=== PATIENT | female | born 1935 | race Caucasian/White ===

== ENCOUNTER → 2018-12-07 | Outpatient (CLI) | payer MEDICARE, OTHER ==
[~2018-12-07] MED LIST: BUPIVACAINE MPF 0.5% 30 ML VIAL. ONE; IOHEXOL 300 MG/ML 50 ML VIAL. ONE; LIDOCAINE 1% PF 30 ML VIAL. ONE; methylPREDNISolone ACETATE 80 MG/ML VIAL. ONE
== END | disposition home or self-care (01) ==
LOC: SURG 09:32
PROVIDERS: ATTEND Anesthesiology Pain Medicine
DX: M17.11 Unilateral primary osteoarthritis, right knee (principal); Z88.2 Allergy status to sulfonamides; K21.9 Gastro-esophageal reflux disease without esophagitis; M19.90 Unspecified osteoarthritis, unspecified site; Z79.899 Other long term (current) drug therapy; Z72.89 Other problems related to lifestyle; M54.16 Radiculopathy, lumbar region; Z86.718 Personal history of other venous thrombosis and embolism
CPT/HCPCS: 20610; 77002; J1040; J2001; J3490; 20611; Q9967

== ENCOUNTER → 2019-08-17 | Outpatient (CLI) | payer MEDICARE, OTHER ==
[2019-08-17] VITALS (7 sets, daily range): BP systolic 116–149; BP diastolic 65–84
[2019-08-17 17:22] LABS: HEMATOCRIT 22.5 % (36.0-47.0); HEMOGLOBIN 7.3 g/dL (12.0-15.5)
[2019-08-17 23:23] LABS: HEMOGLOBIN 8.2 g/dL (12.0-15.5)
== END | disposition home or self-care (01) ==
LOC: OPINF 16:52
PROVIDERS: ATTEND Internal Medicine
DX: D64.9 Anemia, unspecified (principal); K21.9 Gastro-esophageal reflux disease without esophagitis; M17.11 Unilateral primary osteoarthritis, right knee; Z79.899 Other long term (current) drug therapy
CPT/HCPCS: 36415; 85014; 85018; 86850; 86900; 86901; 86920; P9016

== ENCOUNTER 2021-08-05 13:47 | Emergency (ER) | payer MEDICARE, OTHER ==
[~2021-08-05] VITALS: Ht 149.9 cm; Wt 47.0 kg
[2021-08-05 14:07] VITALS: BP 163/102
[2021-08-05 14:57] LABS: BASO % 1 % (0-3); EOS % 1 % (0-3); HEMATOCRIT 39.6 % (36.0-47.0); HEMOGLOBIN 12.9 g/dL (12.0-15.5); LYMPH # 0.7 x10^3/uL (1.0-4.8); LYMPH % 16 % (24-48); MEAN CORPUSCULAR HEMOGLOBIN 31 pg (25-35); MEAN CORPUSCULAR HGB CONC 33 g/dL (31-37); MEAN CORPUSCULAR VOLUME 95 fL (79-100); MONO # 0.3 x10^3/uL (0.0-1.1); MONO % 7 % (0-9); NEUT # 3.6 x10^3uL (1.8-7.7); NEUT % 77 % (31-73); PLATELET COUNT 88 x10^3/uL (140-400); RED CELL DISTRIBUTION WIDTH 14.6 % (11.5-14.5); WHITE BLOOD COUNT 4.7 x10^3/uL (4.0-11.0)
--- NOTE | 2021-08-05 15:01 | PHYS DOC ---
Past History Past Surgical History: Cholecystectomy, Hysterectomy, Knee Replacement, Other Additional Past Surgical Histo: back, shoulders (CLEM HUTCHINS DO) Alcohol Use: None (CLEM HUTCHINS DO) Adult General Chief Complaint Chief Complaint: NEURO SYMPTOMS/DEFICITS HPI HPI Patient is an 86-year-old female who presents with resolved behavioral and speech changes that were present on Wednesday (08/02/2021) evening. Patient's is at bedside and helps provide history, as patient has no recollection of the event. Patient's reports that the patient went "berserk." He states that she was restless and slightly aggressive, for example he tried to put her bed robe on her, and she immediately took it off. He states that when they went to bed, she was moving a lot and tried to get on his side of the bed, and then tried to sleep on the couch. He did make sure that she stayed in bed so that he could keep a closer eye on her. Patient states he called his em ghter the next morning because he was concerned. Patient states that when she woke up on Wednesday, she was very tired and "disoriented." denies noticing any physical deficits or physical trauma. He states that for the most part, what she said made sense, but some of what she was saying was unintelligible and slurred at times. Patient denies pain outside of her normal chronic arthritic pain. She denies change in vision, blind spots, chest pain, palpitations, cough, shortness of breath, abdominal pain, N/V/D, dysuria and hematuria. Patient and her have no other complaints at this time. (DARIUSZ MONTES) Review of Systems Review of Systems ROS negative except as mentioned in HPI. (DARIUSZ MONTES) Current Medications Current Medications Current Medications Medications (Trade) Dose Ordered Sig/Renetta Start Time Stop Time Status Last Admin Dose Admin Lorazepam (Ativan Inj) 0.5 mg 1X ONCE 08/05/21 15:00 08/05/21 15:01 (CLEM HUTCHINS DO) Allergies Allergies Allergies Coded Allergies Type Severity Reaction Last Updated Verified Sulfa (Sulfonamide Antibiotics) Allergy Unknown 08/05/21 Yes adhesive Allergy Unknown 08/05/21 Yes mirtazapine Allergy Unknown 08/05/21 Yes (CLEM HUTCHINS DO) Physical Exam Physical Exam Constitutional: Patient is resting comfortably in bed. She is thin, but appears stated age. Nontoxic appearance. Head and neck: Normocephalic atraumatic, without tenderness. Bilateral external ears without evidence of trauma. Oropharynx moist and without evidence of trauma. Nose within normal limits. Range of motion intact, no tenderness, no tracheal deviation, no goiter. Eyes: PERRLA, EOMI, conjunctiva normal, no discharge bilaterally. Cardiovascular: RRR, no murmurs rubs or gallops. Pulmonary: Lungs are clear to auscultation in all lung chamorro. No wheezing, rales or rhonchi. Abdomen: Normoactive bowel sounds, no tenderness, no pulsatile masses. Skin: Skin is warm and dry without erythema or rashes. Patient does have some bilateral upper extremity ecchymosis which is consistent for age. Back: No bony tenderness in cervical, thoracic or lumbar spine. No paraspinal tenderness. No CVA tenderness. Extremities: Range of motion intact as expected for age and history of arthritis. Extremities are nonedematous and without obvious deformity. Neurologic: Alert and oriented x3, motor and sensory function intact. Strength 4 out of 5 in extremities x4, consistent for age. No focal deficits. Psychologic: Patient is mildly anxious, but her affect, mood and judgment are appropriate. (DARIUSZ MONTES) Current Patient Data Vital Signs Vital Signs Date Time Temp Pulse Resp B/P (MAP) Pulse Ox O2 Delivery O2 Flow Rate FiO2 08/05/21 14:07 85 16 163/102 96 Room Air (CLEM HUTCHINS DO) Vital Signs VS - Last 72 Hours, by Label Date Time Temp Pulse Resp B/P (MAP) Pulse Ox O2 Delivery O2 Flow Rate FiO2 08/05/21 14:07 85 16 163/102 96 Room Air Lab Results Laboratory Tests Test 08/05/21 14:40 08/05/21 17:12 White Blood Count 4.7 x10^3/uL (4.0-11.0) Red Blood Count 4.20 x10^6/uL (3.50-5.40) Hemoglobin 12.9 g/dL (12.0-15.5) Hematocrit 39.6 % (36.0-47.0) Mean Corpuscular Volume 95 fL (79-100) Mean Corpuscular Hemoglobin 31 pg (25-35) Mean Corpuscular Hemoglobin Concent 33 g/dL (31-37) Red Cell Distribution Width 14.6 % (11.5-14.5) Platelet Count 88 x10^3/uL (140-400) Neutrophils (%) (Auto) 77 % (31-73) Lymphocytes (%) (Auto) 16 % (24-48) Monocytes (%) (Auto) 7 % (0-9) Eosinophils (%) (Auto) 1 % (0-3) Basophils (%) (Auto) 1 % (0-3) Neutrophils # (Auto) 3.6 x10^3uL (1.8-7.7) Lymphocytes # (Auto) 0.7 x10^3/uL (1.0-4.8) Monocytes # (Auto) 0.3 x10^3/uL (0.0-1.1) Eosinophils # (Auto) 0.0 x10^3/uL (0.0-0.7) Basophils # (Auto) 0.0 x10^3/uL (0.0-0.2) Sodium Level 144 mmol/L (136-145) Potassium Level 4.3 mmol/L (3.5-5.1) Chloride Level 107 mmol/L (98-107) Carbon Dioxide Level 30 mmol/L (21-32) Anion Gap 7 (6-14) Blood Urea Nitrogen 21 mg/dL (7-20) Creatinine 1.2 mg/dL (0.6-1.0) Estimated GFR (Cockcroft-Gault) 42.7 BUN/Creatinine Ratio 18 (6-20) Glucose Level 115 mg/dL (70-99) Calcium Level 9.2 mg/dL (8.5-10.1) Total Bilirubin 0.3 mg/dL (0.2-1.0) Aspartate Amino Transf (AST/SGOT) 27 U/L (15-37) Alanine Aminotransferase (ALT/SGPT) 24 U/L (14-59) Alkaline Phosphatase 137 U/L (46-116) Troponin I Quantitative < 0.017 ng/mL (0-0.055) Total Protein 7.0 g/dL (6.4-8.2) Albumin 3.8 g/dL (3.4-5.0) Albumin/Globulin Ratio 1.2 (1.0-1.7) Urine Collection Type Unknown Urine Color Yellow Urine Clarity Clear Urine pH 7.0 Urine Specific [place] 1.020 Urine Protein Neg (NEG-TRACE) Urine Glucose (UA) Neg mg/dL (NEG) Urine Ketones (Stick) Neg mg/dL (NEG) Urine Blood Trace (NEG) Urine Nitrite Neg (NEG) Urine Bilirubin Neg (NEG) Urine Urobilinogen Dipstick 0.2 mg/dL (0.2 mg/dL) Urine Leukocyte Esterase Neg (NEG) Urine RBC Occ /HPF (0-2) Urine WBC 0 /HPF (0-4) Urine Squamous Epithelial Cells Few /LPF Urine Bacteria 0 /HPF (0-FEW) (DARIUSZ MONTES) EKG EKG EKG ordered and interpreted by myself at 1454 hrs. as sinus rhythm at 64 bpm, prolonged [place] 238 otherwise unremarkable intervals, left axis deviation, no STEMI (CLEM HUTCHINS DO) Radiology/Procedures Radiology/Procedures [] (CLEM HUTCHINS DO) Radiology/Procedures CT HEAD WITHOUT CONTRAST 08/05/2021 3:00 PM Indication: Reason: CONFUSION, MEMORY LOSS STARTED 3 DAYS AGO WITHOUT TRAUMA : Comparison: None Procedure: Multidetector CT imaging of the head was performed without the administration of contrast. Findings: Age-appropriate senescent atrophic changes noted. Inferior most right temporal lobe and cerebellum not included on the exam. Visualized intracranial structures demonstrate no evidence of acute intracranial hemorrhage. There is no evidence of acute territorial infarction. Please note that CT is limited for evaluation of acute ischemia. No mass effect or midline shift is identified . The ventricles and basilar cisterns have an appropriate appearance. No abnormal extra-axial fluid collections are seen. No acute osseous changes are identified. Impression: Mildly limited study without evidence of acute intracranial abnormality CT DOSING PQRS STATEMENT: One or more of the following individualized dose reduction techniques were utilized for this examination: 1. Automated exposure control 2. Adjustment of the mA and/or kV according to patient size 3. Use of iterative reconstruction technique Electronically signed by: José Miguel Vega MD (08/05/2021 3:51 PM) [id number] Repeat head CT was ordered, due to incomplete initial scan. 16:05 Addendum #1 Addendum: Repeat imaging was performed including the anterior right temporal lobe and cerebellum which could be unremarkable. No acute intracranial abnormality was identified. Electronically signed by: José Miguel Vega MD (08/05/2021 4:32 PM) [id number] (DARIUSZ MONTES) Heart Score C/O Chest Pain: No HEART Score for Chest Pain: HEART Score for Chest Pain Response (Comments) Value History Slighlty/Non-Suspicious 0 ECG Normal 0 Age > 65 2 Risk Factors >3 Risk Factors or Hx CAD 2 Troponin < Normal Limit 0 Total 4 Risk Factors: Risk Factors: DM, Current or recent (<one month) smoker, HTN, HLP, family history of CAD, obesity. Risk Scores: Risk Factors: DM, Current or recent (<one month) smoker, HTN, HLP, family history of CAD, obesity. (CLEM HUTCHINS DO) C/O Chest Pain: No (DARIUSZ MONTES) Course & Med Decision Making Course & Med Decision Making I was the Attending physician on the above date of service of this patient. This patient was evaluated, examined, treated, and dispositioned from the emergency department by the mid-level practitioner. Outpatient neurology follow-up advised Electronically signed, Clem Hutchins DO (CLEM HUTCHINS DO) Course & Med Decision Making Pertinent labs and imaging studies reviewed. (See chart for details) Initial chief complaint and history expressed concern for possible TIA or stroke. Upon interviewing the patient and conducting a physical exam, etiology of her episode appear to be psychiatric in nature. Patient and her were eager to leave, but were encouraged to wait for results of UA to rule out UTI. Cerebral infarction was ruled out by CT scan. UTI ruled out by UA. Patient was instructed to follow-up with PCP and/or neurology for further evaluation and management. Patient, , and daughter are comfortable with this plan. (DARIUSZ MONTES) Dragon Disclaimer Dragon Disclaimer This electronic medical record was generated, in whole or in part, using a voice recognition dictation system. (CLEM HUTCHINS DO) Departure Departure: Impression: Primary Impression: Memory deficit Additional Impression: Behavioral change Disposition: HOME / SELF CARE / HOMELESS Condition: STABLE Referrals: PORFIRIO ROSE (PCP) Additional Instructions: You should follow-up closely with your primary care physician and neurologist regarding Wednesday's episode. Life-threatening illness and etiology was ruled out in the emergency department today. Please return to the department if further behavior changes occur or the patient becomes dangerous. Problem Qualifiers CLEM HUTCHINS DO Aug 05, 2021 15:01 DARIUSZ MONTES Aug 05, 2021 15:41
[2021-08-05 15:17] LABS: CALCIUM 9.2 mg/dL (8.5-10.1); CREATININE 1.2 mg/dL (0.6-1.0); GFR 42.7; POTASSIUM 4.3 mmol/L (3.5-5.1)
--- NOTE | 2021-08-05 15:18 | EKG ---
[address] [address] Test Date: 2021-08-05 Test Time: 14:45:48 Pat Name: DIA MUNGUIA Department: Room: Gender: F Head Waiter/Waitress Banquet: KORIN : 1935 Requested By: CLEM HUTCHINS Order Number: [id number] Reading MD: Stefano Cordero MD Measurements Intervals [place] Rate: 64 P: -90 RI: 238 QRS: -36 QRSD: 84 T: 34 QT: 416 QTc: 433 Interpretive Statements SINUS RHYTHM PROLONGED RI INTERVAL ABNORMAL LEFT AXIS DEVIATION QRS(T) CONTOUR ABNORMALITY CONSISTENT WITH ANTEROSEPTAL INFARCT AGE UNDETERMINED CONSISTENT WITH INFERIOR INFARCT PROBABLY OLD ABNORMAL ECG Electronically Signed On 08-07-2021 9:13:05 CDT by Stefano Cordero MD
[2021-08-05 15:25] LABS: ALBUMIN 3.8 g/dL (3.4-5.0); ALBUMIN/GLOBULIN RATIO 1.2 (1.0-1.7); TOTAL BILIRUBIN 0.3 mg/dL (0.2-1.0)
--- NOTE | 2021-08-05 15:53 | RAD ---
CT HEAD WITHOUT CONTRAST 08/05/2021 3:00 PM Indication: Reason: CONFUSION, MEMORY LOSS STARTED 3 DAYS AGO WITHOUT TRAUMA : Comparison: None Procedure: Multidetector CT imaging of the head was performed without the administration of contrast. Findings: Age-appropriate senescent atrophic changes noted. Inferior most right temporal lobe and cer ebellum not included on the exam. Visualized intracranial structures demonstrate no evidence of acute intracranial hemorrhage. There is no evidence of acute territorial infarction. Please note that CT i s limited for evaluation of acute ischemia. No mass effect or midline shift is identified . The ventr icles and basilar cisterns have an appropriate appearance. No abnormal extra-axial fluid collections are seen. No acute osseous changes are identified. Impression: Mildly limited study without evidence of acute intracranial abnormality CT DOSING PQRS STATEMENT: One or more of the following individualized dose reduction techniques were utilized for this examinat ion: 1. Automated exposure control 2. Adjustment of the mA and/or kV according to patient size 3. Use of iterative reconstruction technique Electronically signed by: José Miguel Vega MD (08/05/2021 3:51 PM) [id number]
[2021-08-05 17:47] LABS: BACTERIA,URINE 0 /HPF (0-FEW); BILIRUBIN,URINE NEG (NEG); CLARITY,URINE CLEAR; COLOR,URINE YELLOW; GLUCOSE,URINE NEG (NEG); NITRITE,URINE NEG (NEG); RBC,URINE OCC /HPF (0-2); SQUAMOUS EPITHELIAL CELL,UR FEW /LPF; UROBILINOGEN,URINE 0.2 mg/dL (0.2 mg/dL); WBC,URINE 0 /HPF (0-4)
== END 2021-08-05 18:10 | disposition home or self-care (01) ==
LOC: ER 13:47
DX: I69.911 Memory deficit following unspecified cerebrovascular disease (principal); F91.9 Conduct disorder, unspecified; Z88.2 Allergy status to sulfonamides; Z88.8 Allergy status to other drugs, medicaments and biological substances
CPT/HCPCS: 36415; 70450; 80053; 81001; 84484; 85025; 93005; 96374; 99285; J2060

== ENCOUNTER 2021-10-02 08:33 | Inpatient (IN) | payer MEDICARE, OTHER ==
[~2021-10-02] VITALS: Ht 149.9 cm; Wt 51.6 kg
--- NOTE | 2021-10-02 08:46 | PHYS DOC ---
Past History Past Surgical History: Cholecystectomy, Hysterectomy, Knee Replacement, Other Additional Past Surgical Histo: back, shoulders Alcohol Use: None Adult General HPI HPI Patient is an 86-year-old female who presents to the emergency department with a chief complaint of fall. States that she fell, this morning in the hallway after tripping over her own feet. States she landed on her right side. Denies loss of consciousness, headache, changes in vision, chest pain, shortness of breath, abdominal pain, nausea, vomiting. Endorses laceration to the right elbow. Denies any numbness/weakness/tingling. States that over the last couple of months she has just become weaker in general and when she walks feels really weak. States that she lives at home alone. Review of Systems Review of Systems Review of systems otherwise unremarkable except noted in HPI Allergies Allergies Allergies Coded Allergies Type Severity Reaction Last Updated Verified Sulfa (Sulfonamide Antibiotics) Allergy Unknown 08/05/21 Yes adhesive Allergy Unknown 08/05/21 Yes mirtazapine Allergy Unknown 08/05/21 Yes Physical Exam Physical Exam Constitutional: Well developed, well nourished, no acute distress, non-toxic appearance. [] HENT: Normocephalic, atraumatic, bilateral external ears normal, oropharynx moist, no oral exudates, nose normal. [] Eyes: conjunctiva normal, no discharge. [] Neck: Normal range of motion, no tenderness, supple, no stridor. [] Cardiovascular: Heart rate regular rhythm, no murmur [] Lungs & Thorax: Bilateral breath sounds clear to auscultation [] Abdomen: soft, no tenderness, no masses, no pulsatile masses. [] Skin: Warm, dry, no erythema, no rash. [] Back: No tenderness, no CVA tenderness. [] Extremities: No tenderness, no cyanosis, no clubbing, ROM intact, no edema. [] Neurologic: Alert and oriented X 3, normal motor function, normal sensory function, no focal deficits noted. [] Psychologic: Affect normal, judgement normal, mood normal. [] EKG EKG [] Radiology/Procedures Radiology/Procedures Patient has an approximately 10 cm laceration on posterior right forearm, bleeding controlled. Extensively cleaned with sterile water. Repaired with 20 sutures of 4-0 Ethilon. Patient tolerated well. Cleaned wound again. Bandaged. Heart Score C/O Chest Pain: No Risk Factors: Risk Factors: DM, Current or recent (<one month) smoker, HTN, HLP, family history of CAD, obesity. Risk Scores: Risk Factors: DM, Current or recent (<one month) smoker, HTN, HLP, family history of CAD, obesity. Course & Med Decision Making Course & Med Decision Making Patient is a 86-year-old female who presents after a fall Vital signs notable for hypertension. Physical exam noted above. Patient wound cleaned and bandaged. EKG with no STEMI. Troponin not concerning. CT of the head, neck, chest abdomen pelvis as well as right knee and elbow notable for right upper lobe 1 cm groundglass opacity as well as middle lobe central lobar groundglass nodules likely infectious. Cultures obtained. IV antibiotics begun. Wound cleaned extensively, reapproximated and repaired with suture and bandaged. Discussed all findings with patient and patient's family. Recommended admission to the hospital for continued management of pneumonia as well as wound manage ment. Also would be helpful since patient lives at home by herself, and is a high risk for fall. Family grateful, verbalized understanding and agreed with plan of admission. Dragon Disclaimer Dragon Disclaimer This electronic medical record was generated, in whole or in part, using a voice recognition dictation system. Departure Departure: Impression: Primary Impression: Frequent falls Additional Impressions: Malnourished Visit for wound care Pneumonia Disposition: ADMITTED INPATIENT Admitting Physician: Aaron Shepherd Condition: IMPROVED Referrals: PORFIRIO ROSE (PCP) Problem Qualifiers BROOKE SILVA MD Oct 02, 2021 08:46
[2021-10-02] MEDS ORDERED: DIPH,PERTUSS(ACELL),TET VAC/PF 0.5 ML SYRINGE. VAX IM ONE (09:30)
--- NOTE | 2021-10-02 09:43 | RAD ---
Right knee 3 views, right elbow 3 views. HISTORY: Fall, right knee pain, right elbow pain Right knee 3 views were taken of the right knee. There is osteoarthritis with joint space narrowing most promin ent at the patellofemoral compartment. There is chondrocalcinosis. There is no acute fracture. Right elbow 3 views were taken in the right elbow. There is not evidence of an acute fracture. There is slight sp urring at the insertion of the triceps muscle at the olecranon. Fat pads the elbow are not definitive ly displacement the lateral view is slightly obliquely positioned which limits evaluation. IMPRESSION: 1. No acute fracture noted in the right elbow. 2. Osteoarthritis right knee. 3. Chondrocalcinosis right knee. 4. No acute fracture right knee. Electronically signed by: Jay Jay Jalloh MD (10/02/2021 9:40 AM) [id number]
--- NOTE | 2021-10-02 09:55 | RAD ---
CT brain without contrast, CT C-spine without contrast HISTORY: Fall, head and neck pain or graft CT brain CT scan the brain was done without contrast. Sinuses are clear. A skull fracture is not identified. T here is no intracranial hemorrhage or subdural hematoma. There is no mass effect or shift of the midl ine. An acute CVA is not identified. There is a possible tiny lacunar infarct in the right cerebellum . Ventricles are normal in size. There is no mass effect or shift of the midline. IMPRESSION: 1. No intracranial hemorrhage or acute finding noted. End impression CT cervical spine Axial CT images were obtained to the cervical spine. Sagittal and coronal reconstructed images were r eviewed. An acute C-spine fracture is not identified. There is scarring in the lung apices. There is extensive degenerative change in the cervical spine. There is disc space narrowing at all levels. The re is facet arthritis at several levels. There is mild subluxation at C3-C4 from facet arthritis. The re is prominent anterior spurring at C6-7. There is scoliosis. IMPRESSION: 1. Extensive degenerative changes in the cervical spine. 2. No acute C-spine fracture. PQRS Compliance Statement: One or more of the following individualized dose reduction techniques were utilized for this examinat ion: 1. Automated exposure control 2. Adjustment of the mA and/or kV according to patient size 3. Use of iterative reconstruction technique Electronically signed by: Jay Jay Jalloh MD (10/02/2021 9:52 AM) [id number]
[2021-10-02 10:11] LABS: CALCIUM 9.1 mg/dL (8.5-10.1); CREATININE 1.1 mg/dL (0.6-1.0); GFR 47.2; POTASSIUM 4.1 mmol/L (3.5-5.1)
[2021-10-02 10:18] LABS: ALBUMIN 3.7 g/dL (3.4-5.0); ALBUMIN/GLOBULIN RATIO 1.3 (1.0-1.7); TOTAL BILIRUBIN 0.3 mg/dL (0.2-1.0); TOTAL PROTEIN 6.5 g/dL (6.4-8.2)
--- NOTE | 2021-10-02 10:25 | RAD ---
CT CHEST_ABDOMEN_ AND PELVIS WITHOUT CONTRAST INDICATION: FALL, PAIN COMPARISON: None. TECHNIQUE: Multiple contiguous axial images were obtained throughout the chest, abdomen, and pelvis without the use of IV contrast. Axial images were reformatted into coronal and sagittal planes. One or more of th e following dose reduction techniques were utilized: Automated exposure control (AEC), Adjustment of mA and/or kV according to patient size, Use of iterative reconstruction technique such as ASiR, CT sc an done according to ALARA and image gently/image wisely. FINDINGS: The thyroid is symmetric. There is no axillary, mediastinal, or hilar adenopathy, although evaluatio n of the willow is limited without IV contrast. The thoracic aorta diameter is normal. The cardiac size is normal. Coronary artery atherosclerotic di sease. There is no pericardial effusion. Moderate-sized hiatal hernia Right upper lobe 1 cm groundglass opacity (series 5 image 35). Mild middle lobe centrilobular groundg lass nodules. Bibasilar dependent and subsegmental atelectasis. Postsurgical changes of left lower lo be sublobar resection. Centrilobular emphysema. No pleural abnormality. Evaluation of solid abdominal viscera is limited without the use of IV contrast. Dilated intrahepatic and extrahepatic bile ducts, with common bile duct measuring 15 mm in diameter. Cholecystectomy. Adr enal glands are unremarkable. No hydronephrosis or opaque urinary calculi. There is no significant m esenteric or retroperitoneal adenopathy identified, though evaluation is limited without intravenous contrast. There is no evidence of free intraperitoneal fluid or pneumoperitoneum. Large colonic sto ol burden. Colonic diverticulosis. The bladder is unremarkable. Hysterectomy. There is no significant pelvic ascites. No significant il iac or inguinal adenopathy is identified. Mild height loss at T7 appears chronic. Mild thoracic spondylosis Advanced lumbar spondylosis. Right convex lumbar curvature centered at L3. Posterior instrumentation at L4-5 with interbody spacer. Grad e 1 anterolisthesis at L5-S1 due to facet arthropathy. Left eighth rib defect from prior thoracotomy. Small fat-containing hernia. IMPRESSION: 1. No evidence of traumatic mediastinal or lung injury. No abdominal solid organ injury. 2. Mild height loss at T7 appears chronic, but no priors for comparison. Correlate for focal tenderne ss. 3. Right upper lobe 1 cm groundglass opacity, possibly an infectious/plantar process. Recommend 2-3 m onth follow-up CT chest to ensure resolution. 4. Middle lobe centrilobular groundglass nodules, likely an infectious bronchiolitis or aspiration br onchiolitis. 5. Intrahepatic and extrahepatic bile duct dilatation, probably due to patient's postcholecystectomy state. Correlate with laboratory values. Electronically signed by: Frederic Arenas MD (10/02/2021 10:22 AM) [facility]
[2021-10-02 10:27] LABS: HEMATOCRIT 36.4 % (36.0-47.0); HEMOGLOBIN 12.1 g/dL (12.0-15.5); RED BLOOD COUNT 3.9 x10^6/uL (3.50-5.40); RED CELL DISTRIBUTION WIDTH 14.3 % (11.5-14.5)
[2021-10-02 11:14] LABS: BACTERIA,URINE 0 /HPF (0-FEW); BILIRUBIN,URINE NEG (NEG); CLARITY,URINE HAZY; COLOR,URINE YELLOW; GLUCOSE,URINE NEG (NEG); HYALINE CASTS, URINE FEW /HPF; NITRITE,URINE NEG (NEG); SQUAMOUS EPITHELIAL CELL,UR MANY /LPF; UROBILINOGEN,URINE 0.2 mg/dL (0.2 mg/dL)
[2021-10-02] MEDS ORDERED: LIDOCAINE/EPI/TETRACAINE TOPICAL GEL 3 ML. TP ONE (11:45)
[2021-10-02] MEDS ORDERED: AZITHROMYCIN 500 MG in IV NORMAL SALINE 250ML 250 ML IV ONE (11:45)
[2021-10-02] MEDS ORDERED: cefTRIAXone SODIUM 1 GM VIAL ONE (11:58)
[2021-10-02] MEDS ORDERED: IV NORMAL SALINE 50ML 50 ML ONE (11:58)
[2021-10-02] MEDS ORDERED: IV NORMAL SALINE 250ML 250 ML ONE (13:07)
[2021-10-02] MEDS ORDERED: AZITHROMYCIN 500 MG VIAL. IV ONE (13:08)
[2021-10-02 14:13] VITALS: BP 151/76
[2021-10-02] MEDS ORDERED: SERT-269 PO (14:40)
[2021-10-02] MEDS ORDERED: LEVO100T PO (14:40)
[2021-10-02] MEDS ORDERED: OMEP40CA7 PO (14:40)
[2021-10-02] MEDS ORDERED: BUSP15TA PO (14:40)
[2021-10-02] MEDS ORDERED: CARB1TAB22 PO (14:40)
[2021-10-02] MEDS ORDERED: ONDA4TAB12 PO (14:40)
[2021-10-02] MEDS ORDERED: GABA100C81 PO (14:40)
[2021-10-02] MEDS ORDERED: OXYC10TA46 PO (14:40)
[2021-10-02] MEDS ORDERED: OXYC5TAB88 PO (14:40)
[2021-10-02] MEDS ORDERED: ALPR0.254 PO (14:40)
[2021-10-02] MEDS ORDERED: ALPRAZolam 0.25 MG TABLET PO PRN (15:15)
[2021-10-02] MEDS ORDERED: ONDANSETRON ODT 4 MG TAB.RAPDIS PO PRN (15:15)
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
[2021-10-02] MEDS ORDERED: ROPI0.254 PO (16:32)
[2021-10-02] MEDS ORDERED: DONE10TA7 PO (16:32)
[2021-10-02] MEDS ORDERED: CLON0.5T4 PO (16:32)
[2021-10-02] MEDS: oxyCODONE IR 5 MG TABLET PO PRN (18:37)
[2021-10-02 18:46] VITALS: BP 136/74
--- NOTE | 2021-10-02 18:52 | EKG ---
[address] [address] Test Date: 2021-10-02 Test Time: 08:55:47 Pat Name: DIA MUNGUIA Department: Room: 124 A Gender: F Hand Collator: JORGE : 1935 Requested By: BROOKE SILVA Order Number: [id number] Reading MD: Bhanu Mcnair Measurements Intervals [place] Rate: 66 P: -38 MA: 232 QRS: -38 QRSD: 82 T: 52 QT: 426 QTc: 448 Interpretive Statements SINUS RHYTHM PROLONGED MA INTERVAL ABNORMAL LEFT AXIS DEVIATION LOW LIMB LEAD VOLTAGE LEFT ANTERIOR FASCICULAR BLOCK NON SPECIFIC ST-T WAVE CHANGES Electronically Signed On 10-06-2021 9:55:25 [employer] by Bhanu Mcnair
--- NOTE | 2021-10-02 18:59 | NUR ---
Nursing note: Pt arrived from ED at 1400 on gurney. Pt alert and oriented x 4, cooperative. Pt stated she was a little worried about the wound at right elbow. Pt was oriented to room amenities, safety devices, and unit routines. Reason for hospitalization and care plan explained. Will continue to monitor patient's condition.
[2021-10-02] MEDS: GABAPENTIN 100 MG CAPSULE. PO SCH (21:27)
[2021-10-02] MEDS: oxyCODONE ER 10 MG TAB.ER.12H PO SCH (21:27)
[2021-10-02] MEDS: CARBIDOPA/LEVODOPA 25/100MG TABLET PO SCH (21:27)
[2021-10-02] MEDS: rOPINIRole 0.25 MG TABLET. PO SCH (21:27)
[2021-10-02] MEDS: busPIRone 15 MG TABLET. PO SCH (21:28)
[2021-10-02] MEDS: PANTOPRAZOLE 40 MG TABLET. PO SCH (21:28)
[2021-10-02 23:01] VITALS: BP 132/74
[2021-10-03] MEDS: LEVOTHYROXINE 100 MCG TABLET PO SCH (06:00)
[2021-10-03 06:04] VITALS: BP 172/79
[2021-10-03] MEDS: AZITHROMYCIN 250 MG TABLET. PO SCH (08:33)
[2021-10-03] MEDS: busPIRone 15 MG TABLET. PO SCH ×3 (08:33→20:17)
[2021-10-03] MEDS: CARBIDOPA/LEVODOPA 25/100MG TABLET PO SCH ×3 (08:33→20:17)
[2021-10-03] MEDS: GABAPENTIN 100 MG CAPSULE. PO SCH ×3 (08:33→20:18)
[2021-10-03] MEDS: DONEPEZIL HCL 10 MG TABLET PO SCH (08:33)
[2021-10-03] MEDS: SERTRALINE 100 MG TABLET. PO SCH (08:33)
[2021-10-03] MEDS: oxyCODONE IR 5 MG TABLET PO PRN ×2 (08:34→14:15)
[2021-10-03] MEDS: PANTOPRAZOLE 40 MG TABLET. PO SCH ×2 (08:37→20:17)
[2021-10-03] MEDS: oxyCODONE ER 10 MG TAB.ER.12H PO SCH ×2 (08:37→20:18)
[2021-10-03 10:50] VITALS: BP 114/75
[2021-10-03] MEDS ORDERED: LIDOCAINE 1% PF 30 ML VIAL. IM ONE (14:45)
[2021-10-03] MEDS ORDERED: methylPREDNISolone ACETATE 40 MG/ML VIAL. IM ONE (14:45)
[2021-10-03 14:52] VITALS: BP 121/72
[2021-10-03 15:17] VITALS: BP 107/69
[2021-10-03 16:02] LABS: HEMATOCRIT 37.9 % (36.0-47.0); HEMOGLOBIN 12.4 g/dL (12.0-15.5); RED CELL DISTRIBUTION WIDTH 14.5 % (11.5-14.5); WHITE BLOOD COUNT 7.4 x10^3/uL (4.0-11.0)
[2021-10-03 16:12] LABS: ALBUMIN 3.5 g/dL (3.4-5.0); ALBUMIN/GLOBULIN RATIO 1.1 (1.0-1.7); CALCIUM 8.7 mg/dL (8.5-10.1); CREATININE 1.4 mg/dL (0.6-1.0); GFR 35.7; POTASSIUM 4.2 mmol/L (3.5-5.1); TOTAL BILIRUBIN 0.4 mg/dL (0.2-1.0); TOTAL PROTEIN 6.8 g/dL (6.4-8.2)
[2021-10-03 19:00] VITALS: BP 128/80
[2021-10-03] MEDS: rOPINIRole 0.25 MG TABLET. PO SCH (20:18)
--- NOTE | 2021-10-04 02:02 | PN ---
DATE: 10/03/2021 SUBJECTIVE: The patient is sitting in her chair comfortably, complaining of severe pain mostly in her knees. She is already on large number of pain medications. She stated that she has not had any steroid injection for almost 6 months now and she does benefit from injecting her knees. Her is already at [facility] and given that she is debilitated, has multiple falls, a decision was made to eventually discharge her to [facility] on Wednesday, 10/06. Meanwhile, we will continue with IV antibiotic for her community-acquired pneumonia and I will inject her right knee today with Depo-Medrol and lidocaine. PHYSICAL EXAMINATION: GENERAL: On examining her, she was pale, somewhat cachectic, but not jaundice or cyanosed, no lymphadenopathy, no thyromegaly, no jugular venous distention. No limb edema. VITAL SIGNS: Her heart rate was 84, blood pressure is 114/75, temperature 97.9, respiratory rate was 18 and oxygen saturation was 97% on 2 liters of oxygen. HEAD, EYES, EARS, NOSE, AND THROAT: Normocephalic, atraumatic. NECK: Supple. HEART: Normal first and second heart sounds, no gallop, rub or murmur. CHEST: Shows central trachea, equally reduced expansion, reduced air entry, vesicular breath sounds, crepitation mostly on the right side posteriorly. ABDOMEN: Scaphoid, soft, nontender. NEUROLOGIC: She was grossly intact. Her intake and output are incompletely recorded. LABORATORY DATA: She has no lab work done this morning. ASSESSMENT: This is an 86-year-old female patient who was admitted with: 1. Recurrent falls, probably multifactorial. 2. Community-acquired pneumonia. 3. Generalized debility and weakness. 4. Hypertension. 5. Hyperlipidemia. 6. Hypothyroidism. 7. Chronic obstructive pulmonary disease, on oxygen. 8. Parkinson's disease. RON/PEGGY DR: Radha TID: [id number]
--- NOTE | 2021-10-04 05:22 | NUR ---
Nursing note: R elbow suture dressing changed at beginning of shift; per pt request, L second toe redressed. Pt stated R knee "feels better" after steroid and lido injection today. VS WNL.
[2021-10-04] MEDS: LEVOTHYROXINE 100 MCG TABLET PO SCH ×2 (05:34→09:44)
[2021-10-04 05:42] VITALS: BP 165/80
[2021-10-04 09:02] VITALS: BP 127/67
[2021-10-04] MEDS: CARBIDOPA/LEVODOPA 25/100MG TABLET PO SCH ×3 (09:41→20:15)
[2021-10-04] MEDS: busPIRone 15 MG TABLET. PO SCH ×3 (09:41→20:14)
[2021-10-04] MEDS: AZITHROMYCIN 250 MG TABLET. PO SCH (09:42)
[2021-10-04] MEDS: PANTOPRAZOLE 40 MG TABLET. PO SCH ×2 (09:42→20:14)
[2021-10-04] MEDS: oxyCODONE ER 10 MG TAB.ER.12H PO SCH ×2 (09:43→20:14)
[2021-10-04] MEDS: SERTRALINE 100 MG TABLET. PO SCH (09:44)
[2021-10-04] MEDS: GABAPENTIN 100 MG CAPSULE. PO SCH ×3 (09:44→20:15)
[2021-10-04] MEDS: DONEPEZIL HCL 10 MG TABLET PO SCH (09:46)
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
--- NOTE | 2021-10-04 14:17 | NUR ---
Nursing note: Patient's scheduled IV antibiotic missed d/t nonfunctioning IV access. Multiple attempts to insert new IV line unsuccessful; MD aware; PO antibiotic ordered instead.
[2021-10-04 14:48] VITALS: BP 125/73
[2021-10-04] MEDS ORDERED: ALPRAZolam 0.25 MG TABLET PO PRN (16:00)
[2021-10-04 19:00] VITALS: BP 117/77
[2021-10-04] MEDS: rOPINIRole 0.25 MG TABLET. PO SCH (20:14)
[2021-10-04] MEDS: LACTOBACILLUS RHAMNOSUS GG 1 CAPSULE. PO SCH (20:14)
[2021-10-04] MEDS: CEFDINIR 300 MG CAPSULE PO SCH (20:17)
--- NOTE | 2021-10-05 01:42 | PN ---
DATE: 10/04/2021 SUBJECTIVE: The patient is sitting in her chair comfortably, in no apparent distress. Her IV line ____ and we were unable to get an IV access and therefore, I switched her to oral cefdinir together with Zithromax. The pain in her right knee joint has much improved after steroid injection yesterday and was able to walk. PHYSICAL EXAMINATION: GENERAL: When I examined her, she was pale, cachectic, but not jaundiced or cyanosed, no thyromegaly. No jugular venous distention. No lower limb edema. VITAL SIGNS: Her heart rate was 78, blood pressure is 127/67, temperature was 97.6, respiratory rate 22, and oxygen saturation was 96%. The rest of the clinical exam stable. Her intake and output are incompletely recorded. LABORATORY DATA: As of yesterday showed a serum sodium 140, potassium 4.2, chloride 106, bicarbonate 26, anion gap of 8, BUN 22, creatinine 1.4. Estimated GFR was 35 mL per minute. Her glucose was 122, calcium was 8.7. Total bilirubin 0.4, AST, ALT normal, alkaline phosphatase slightly elevated. Total protein 6.8, albumin 3.5. Her urinalysis essentially unremarkable. Her blood showed no growth after 2 days. Her urine showed 10,000 colonies forming units per mL of normal genitourinary maureen, not indicative of an infection. ASSESSMENT: 1. Recurrent falls, probably multifactorial. 2. Community-acquired pneumonia. 3. Generalized debility and weakness. 4. Hypertension. 5. Hyperlipidemia. 6. Hypothyroidism. 7. Chronic obstructive pulmonary disease, on oxygen. 8. Parkinson's disease. PLAN: Continue with oral antibiotic. Continue with pain management. Continue with all her current medications. I will repeat her labs since creatinine is slightly ____ as well as TSH tomorrow. RON/AIMEE/PRAVEEN DR: Radha TID: [id number]
--- NOTE | 2021-10-05 03:28 | NUR ---
Nursing note: Daylight Savings Time Pt resting in bed, call light in reach. No needs at this time.
--- NOTE | 2021-10-05 03:30 | NUR ---
Nursing note: Pt minimal c/o pain at beginning of shift, stated she felt "better" with regards to pain control after 10/03 lido injection in knee. Pt expressed no anxiety, did not require PRN medications. Rested comfortably through shift, no needs at this time.
--- NOTE | 2021-10-05 04:20 | NUR ---
Nursing note: Hector Josue at [facility], hold 0600 levothyroxine as it was given 10/04.
[2021-10-05 05:54] VITALS: BP 163/79
[2021-10-05 08:04] LABS: CALCIUM 9.3 mg/dL (8.5-10.1); CREATININE 1.2 mg/dL (0.6-1.0); GFR 42.7; POTASSIUM 4.2 mmol/L (3.5-5.1)
[2021-10-05] MEDS: DONEPEZIL HCL 10 MG TABLET PO SCH (08:57)
[2021-10-05] MEDS: LACTOBACILLUS RHAMNOSUS GG 1 CAPSULE. PO SCH ×2 (08:57→19:43)
[2021-10-05] MEDS: PANTOPRAZOLE 40 MG TABLET. PO SCH ×2 (08:58→19:43)
[2021-10-05] MEDS: busPIRone 15 MG TABLET. PO SCH ×3 (08:58→19:43)
[2021-10-05] MEDS: AZITHROMYCIN 250 MG TABLET. PO SCH (08:58)
[2021-10-05] MEDS: CEFDINIR 300 MG CAPSULE PO SCH ×2 (08:58→19:43)
[2021-10-05] MEDS: GABAPENTIN 100 MG CAPSULE. PO SCH ×3 (08:58→19:43)
[2021-10-05] MEDS: SERTRALINE 100 MG TABLET. PO SCH (08:58)
[2021-10-05] MEDS: CARBIDOPA/LEVODOPA 25/100MG TABLET PO SCH ×3 (08:58→19:43)
[2021-10-05] MEDS: oxyCODONE ER 10 MG TAB.ER.12H PO SCH ×2 (08:58→19:44)
[2021-10-05 10:49] LABS: FREE T4 1.14 ng/dL (0.76-1.46)
[2021-10-05 10:50] LABS: THYROID STIM HORMONE (TSH) 0.178 uIU/mL (0.358-3.740)
[2021-10-05 19:25] VITALS: BP 132/75
[2021-10-05] MEDS: rOPINIRole 0.25 MG TABLET. PO SCH (19:44)
--- NOTE | 2021-10-05 21:32 | PN ---
DATE: 10/05/2021 SUBJECTIVE: The patient is sitting comfortably in her chair, in no apparent respiratory distress. On questioning her, she denied any complaint. The nursing staff did not voice any concerns that she had an eventful night. PHYSICAL EXAMINATION: GENERAL: When I examined her, she looked pale, somewhat cachectic, but not jaundiced or cyanosed. No thyromegaly. No jugular venous distention. No limb edema. VITAL SIGNS: Her heart rate was 64, blood pressure was 163/79, temperature 97.4, respiratory rate was 18 and oxygen saturation was 94%. HEAD, EYES, EARS, NOSE AND THROAT: Normocephalic, atraumatic. NECK: Supple. HEART: Normal first and second heart sounds. No gallop, rub or murmur. CHEST: Clear to auscultation. No crepitation or rhonchi. ABDOMEN: Distended, soft, nontender. NEUROLOGIC: She is grossly intact. Her intake was 1100. No output was recorded. LABORATORY DATA: As of this morning, her white cell count was 7400, hemoglobin 12, hematocrit 37, MCV 95 and platelet count of 94,000. Her chemistry showed a serum sodium 142, potassium 4.2, chloride 107, bicarbonate 29, anion gap of 6, BUN 26, creatinine 1.2. Estimated GFR was 42 mL per minute. Her glucose was 77, calcium was 9.3. Her TSH was extremely low at 0.78; however, her free T4 was 1.114, indicating that she is clinically euthyroid. ASSESSMENT: 1. Recurrent falls, probably multifactorial. 2. Community-acquired pneumonia. 3. Generalized debility and weakness. 4. Hypertension. 5. Hyperlipidemia. 6. Hypothyroidism. 7. Chronic obstructive pulmonary disease, on oxygen. 8. Parkinson's disease. PLAN: Continue with oral antibiotic. Continue pain management. Continue with physical and occupational therapy. She will be discharged to [facility] tomorrow. RON/CHARO DR: Radha TID: [id number]
[2021-10-05 22:10] VITALS: BP 122/74
[2021-10-06 00:06] LABS: THYROXINE 8.2 ug/dL (4.5-12.0)
[2021-10-06 05:25] VITALS: BP 158/76
[2021-10-06] MEDS: LEVOTHYROXINE 100 MCG TABLET PO SCH (05:34)
[2021-10-06] MEDS: DONEPEZIL HCL 10 MG TABLET PO SCH (07:59)
[2021-10-06] MEDS: busPIRone 15 MG TABLET. PO SCH ×2 (08:00→14:22)
[2021-10-06] MEDS: LACTOBACILLUS RHAMNOSUS GG 1 CAPSULE. PO SCH (08:00)
[2021-10-06] MEDS: GABAPENTIN 100 MG CAPSULE. PO SCH ×2 (08:00→14:22)
[2021-10-06] MEDS: CEFDINIR 300 MG CAPSULE PO SCH (08:01)
[2021-10-06] MEDS: SERTRALINE 100 MG TABLET. PO SCH (08:03)
[2021-10-06] MEDS: PANTOPRAZOLE 40 MG TABLET. PO SCH (08:03)
[2021-10-06] MEDS: CARBIDOPA/LEVODOPA 25/100MG TABLET PO SCH ×2 (08:03→14:22)
[2021-10-06] MEDS: AZITHROMYCIN 250 MG TABLET. PO SCH (08:03)
[2021-10-06] MEDS: oxyCODONE ER 10 MG TAB.ER.12H PO SCH (08:03)
--- NOTE | 2021-10-06 09:44 | PN ---
DATE: 10/03/2021 ADDENDUM The patient complained of severe pain in her right knee joint and stated that she has benefitted from steroid injection. We did verbal and subsequently written consent for the procedure and under strict aseptic technique and after cleaning the skin with Betadine, a mixture of Depo-Medrol and 10 mL of 1% lidocaine were injected into the right knee joints successfully without any problem. The patient tolerated the procedure very well. The patient was instructed that the procedure was done in a sterilely fashion. However, if the patient developed any redness, tenderness, swelling or fever, she should inform the nursing staff immediately. OSWALD/MARIETTA DR: Radha TID: [id number]
[2021-10-06 11:06] VITALS: BP 110/76
[2021-10-06] MEDS ORDERED: CEFD300C PO (13:00)
--- NOTE | 2021-10-06 14:49 | NUR ---
New med order was discussed with patient. PT verbalized understanding. Patient discharged to [facility]. Report given to nurse Celia. Patient left unit via wheelchair with this RN. Transportation provided by facility.
== END 2021-10-06 14:45 | DRG 177 ==
LOC: ER 08:33 → 1 SOUTH 11:39
PROVIDERS: ADMIT Internal Medicine; ATTEND Internal Medicine
PROC: 0HQDXZZ Repair Right Lower Arm Skin, External Approach (ICD-10-PCS; principal; 2021-10-02)
PROC: 3E0U33Z Introduction of Anti-inflammatory into Joints, Percutaneous Approach (ICD-10-PCS; 2021-10-03)
PROC: 3E0U3BZ Introduction of Anesthetic Agent into Joints, Percutaneous Approach (ICD-10-PCS; 2021-10-03)
DX: J15.6 Pneumonia due to other Gram-negative bacteria (principal); E43 Unspecified severe protein-calorie malnutrition; J44.0 Chronic obstructive pulmonary disease with (acute) lower respiratory infection; S51.011A Laceration without foreign body of right elbow, initial encounter; J15.9 Unspecified bacterial pneumonia; Z96.659 Presence of unspecified artificial knee joint; Z96.611 Presence of right artificial shoulder joint; W17.89XA Other fall from one level to another, initial encounter; G30.9 Alzheimer's disease, unspecified; F02.80 Dementia in other diseases classified elsewhere, unspecified severity, without behavioral disturbance, psychotic disturbance, mood disturbance, and anxiety; I10 Essential (primary) hypertension; E78.5 Hyperlipidemia, unspecified; E03.9 Hypothyroidism, unspecified; G20 Parkinson's disease; M15.9 Polyosteoarthritis, unspecified; R29.6 Repeated falls; Z90.710 Acquired absence of both cervix and uterus; Z87.891 Personal history of nicotine dependence; Z99.81 Dependence on supplemental oxygen; Z98.42 Cataract extraction status, left eye; Z98.41 Cataract extraction status, right eye; Z90.49 Acquired absence of other specified parts of digestive tract; Y93.89 Activity, other specified; Y92.89 Other specified places as the place of occurrence of the external cause; Y99.8 Other external cause status; Z68.23 Body mass index [BMI] 23.0-23.9, adult; Z20.822 Contact with and (suspected) exposure to COVID-19
CPT/HCPCS: 36415; 70450; 71250; 72125; 73080; 73562; 74176; 80048; 80053; 81001; 84436; 84439; 84443; 84480; 84484; 85027; 87040; 87086; 87426; 90471; 90715; 93005; 96365; J0456; J0696; J1030; J3010; J7050; Q0162; U0003; 97110; 97116; 97530; 99285-25

== ENCOUNTER 2022-02-27 13:03 | Emergency (ER) | payer MEDICARE, OTHER ==
[~2022-02-27] VITALS: Ht 149.9 cm; Wt 51.6 kg
[~2022-02-27 13:03] MED LIST changes: +ALPR0.254 PO; -BUPIVACAINE MPF 0.5% 30 ML VIAL. ONE; +BUSP15TA PO; +CARB1TAB22 PO; +CEFD300C PO; +CLON0.5T4 PO; +DONE10TA7 PO; +GABA100C81 PO; -IOHEXOL 300 MG/ML 50 ML VIAL. ONE; +LEVO100T PO; -LIDOCAINE 1% PF 30 ML VIAL. ONE; +OMEP40CA7 PO; +ONDA4TAB12 PO; +OXYC10TA46 PO; +OXYC5TAB88 PO; +ROPI0.254 PO; +SERT-269 PO; -methylPREDNISolone ACETATE 80 MG/ML VIAL. ONE
--- NOTE | 2022-02-27 13:25 | PHYS DOC ---
Past History Past Surgical History: Cholecystectomy, Hysterectomy, Knee Replacement, Other Additional Past Surgical Histo: back, shoulders Alcohol Use: None General Adult EDM: Chief Complaint: MECHANICAL FALL HPI: HPI: Patient is an 86-year-old female who presents to the emergency department via EMS following a fall. Patient reports that she was in her kitchen and when she lost her balance and fell backwards hitting the back of her head on her wall. She is reporting right knee pain and right hand pain and she states that she was holding some ice in her hand when she fell and she has a laceration to her right hand proximal to her thumb. Patient denies loss of consciousness, dizziness, nausea, vomiting, neck or back pain, chest pain, abdominal pain, blood thinner use. She reports that her tetanus shot is up-to-date. Review of Systems: Review of Systems: HENT: See HPI Cardiovascular: See HPI GI: See HPI Musculoskeletal: See HPI Integument: HPI Neurologic: See HPI Allergies: Allergies: Allergies Coded Allergies Type Severity Reaction Last Updated Verified Sulfa (Sulfonamide Antibiotics) Allergy Unknown 08/05/21 Yes adhesive Allergy Unknown 08/05/21 Yes mirtazapine Allergy Unknown 08/05/21 Yes Physical Exam: PE: Constitutional: Well developed, well nourished, no acute distress, non-toxic appearance. [] HENT: Normocephalic, atraumatic, bilateral external ears normal, oropharynx moist, no oral exudates, nose normal. [] Eyes: PERRL, 4mm bilaterally, EOMI, conjunctiva normal, no discharge. [] Neck: Normal range of motion, lower neck pain with palpation, no step offs or deformities, supple, no stridor. [] Cardiovascular:Heart rate regular rhythm, no murmur , no chest wall tenderness with palpation[] Lungs & Thorax: Bilateral breath sounds clear to auscultation, no flail segments [] Abdomen: Bowel sounds normal, soft, no tenderness, no masses, no pulsatile masses. [] Skin: Warm, dry, no erythema, no rash. [] Back: No tenderness, normal ROM Extremities: No tenderness, no cyanosis, no clubbing, ROM intact, no edema. [] R. knee: mild swelling noted to medial aspect of knee, pain with palpation to anterior aspect of knee, rom intact, neuro intact, no crepitis, no wounds. R. hand: v shaped laceration noted to palmar aspect of right hand proximal to thumb, no tendon involvment, rom intact, neuro intact, no visible fb. Neurologic: Alert and oriented X 3, normal motor function, normal sensory function, no focal deficits noted. [] Psychologic: Affect normal, judgement normal, mood normal. [] EKG: EKG: [] Radiology/Procedures: Radiology/Procedures: []PROCEDURE: KNEE RIGHT 3V XR KNEE 3 VIEWS_RT DATE: 02/27/2022 1:30 PM INDICATION: fall today, cut to hand, knee pain COMPARISON: 10/02/2021 FINDINGS: Bones: There is no evidence of acute fracture or dislocation. Joints: Moderate medial and lateral compartment degenerative changes, severe patellofemoral compartment degenerative changes. There is no joint effusion. Chondrocalcinosis of the menisci, nonspecific but can be seen with CPPD arthropathy. IMPRESSION: No acute fracture Electronically signed by: Mikael Fierro MD (02/27/2022 2:03 PM) [id number] DICTATED AND SIGNED BY: MIKAEL FIERRO MD DATE: 02/27/22 1401 CC: PHUONG WISE APRN; PORFIRIO ROSE ~ FINDINGS: The ventricles and sulci are prominent consistent with cerebral volume loss. Patchy ill-defined low attenuation areas in the subcortical and periventricular white matter bilaterally are consistent with microvascular disease. There is no evidence of acute intracranial hemorrhage, extra-axial collection, mass effect, midline shift, or acute territorial infarct. No lesion of the skull base or the calvarium is seen. The visualized paranasal sinuses, mastoid air cells, and orbits are normal in appearance. IMPRESSION: No evidence for acute intracranial abnormality. Volume loss and microvascular disease. EXAMINATION: CT OF THE CERVICAL SPINE WITHOUT CONTRAST Clinical Indication: Cervical spine pain after trauma Technique: Thin cut helical axial CT images through the cervical spine were obtained without contrast on a multi-detector CT scanner. Source data was then reconstructed into sagittal and coronal planes. Findings: There is grade 1 retrolisthesis of C3 on C4 and C4 and C5, likely degenerative. Vertebral body heights are maintained without acute fracture. Moderate to severe multilevel degenerative changes are noted. No significant prevertebral soft tissue swelling is demonstrated. No severe osseous central canal stenosis is seen. There is saccular aneurysmal dilatation along the mid aortic arch up to 3.2 cm in diameter. Aortic calcifications are noted. Mild bilateral emphysematous changes are noted with right apical posterior s carring and/or atelectasis. Impression: No evidence of acute cervical spine fracture. Degenerative changes noted. 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 Electronically signed by: Shakila Jiang MD (02/27/2022 2:16 PM) [id number] DICTATED AND SIGNED BY: SHAKILA JIANG MD DATE: 02/27/22 1408 CC: PHUONG WISE APRN; PORFIRIO ROSE ~ Heart Score: C/O Chest Pain: N/A Risk Factors: Risk Factors: DM, Current or recent (<one month) smoker, HTN, HLP, family history of CAD, obesity. Risk Scores: Score 0 - 3: 2.5% MACE over next 6 weeks - Discharge Home Score 4 - 6: 20.3% MACE over next 6 weeks - Admit for Clinical Observation Score 7 - 10: 72.7% MACE over next 6 weeks - Early Invasive Strategies Course & Med Decision Making: Course & Med Decision Making Pertinent Labs and Imaging studies reviewed. (See chart for details) [] Patient presents to the emergency department following a fall with complaints of right knee and right hand pain. Patient reports that she did hit her head therefore a CT scan was performed of her head and neck. Imaging was also performed of her knee and hand. Patient has a laceration to her right hand that will require sutures. Wound was cleansed with sterile saline. Laceration rep air performed. Patient tolerated procedure. There is no visible foreign bodies or tendon involvement. Patient's hand is neurovascularly intact. Patient's knee is neurovascularly intact and she does have range of motion. Patient reports that her tetanus is up-to-date. Patient educated on wound care and suture removal. Patient's imaging was negative for any acute fractures. P alex's right knee was placed in an Kyle wrap. She is educated on the rice protocol. I discussed with patient all findings and diagnostic testing as well as the need to follow-up with PCP for further evaluation and treatment or return to the ER if any new or worsening symptoms. Strict return precautions were also discussed at length. Patient voiced understanding and agreement with the plan. Patient is hemodynamically stable at the time of disposition. Dragon Disclaimer: Dragon Disclaimer: This electronic medical record was generated, in whole or in part, using a voice recognition dictation system. Laceration Repair Lac Repair Time:1429 Confirmed: Patient, procedure, site, and site correct Consent: Patient has given verbal consent Laceration location: Palmar aspect of right hand proximal to thumb Shape: V-shaped Depth: Superficial Details: Clean with no foreign material Neurovascular, tendon exam: Intact Anesthesia: 1% lidocaine Preparation: Sterile field established Irrigation: Wound irrigated with saline wash Skin closure: Simple interrupted sutures placed Size of suture: 6-0 Ethilon Number of sutures: 7 Complexity: Single layer Post procedure exam: Circulation, motor, sensory exam intact, bleeding controlled. Complications: None Patient tolerated: Well Performed by: self Total time: 25 minutes Departure Departure: Impression: Primary Impression: Laceration Additional Impression: Fall Qualified Codes: W19.XXXA - Unspecified fall, initial encounter Disposition: HOME / SELF CARE / HOMELESS Condition: GOOD Referrals: PORFIRIO ROSE (PCP) Patient Instructions: Laceration Care, Adult, RICE - Routine Care for Injuries Additional Instructions: You were seen in the emergency department following a fall. Imaging was performed of your head neck, right knee and right hand that showed no acute fractures. This will likely improve over time. Your symptoms may be improved by something called the rice protocol. This is rest, ice, compression, elevation. Please follow-up when doing intense exercises that may make the pain worse. Sometimes gentle stretching can provide relief, but be careful to injury. It is important to perform gentle range of motion exercises to prevent stiff joints and chronic pain. Use ice packs over the affected areas to help decrease your pain. For the first 24 hours you can apply ice 20 minutes on 20 minutes off for 4 times per day. Sometimes compression such as the use of an Kyle wrap can help with the swelling. You may also elevate the affected area to help with the swelling. You can take Tylenol and ibuprofen for pain at home. You had a laceration to your hand that was repaired with sutures. These keep this area clean and dry. Wash with mild soap and warm water. You can apply Polysporin or bacitracin ointment to the site and keep a bandage in place. Avoid excessive movement of your hand and thumb. Follow-up with your primary care provider or return to the emergency department in 7 to 10 days to have your sutures removed. Monitor for any signs of infection to include redness, warmth, swelling or drainage. Return to the emergency department if you develop any of the signs of infection, confusion, inability to ambulate, poor coordination, vision changes, intractable nausea or vomiting, high fevers refractory to treatment, neck or back pain, loss of bowel or bladder, numbness or tingling in your groin or down your legs, decreased range of motion or decreased sensation in your hand. PHUONG WISE APRN Feb 27, 2022 13:25
[2022-02-27] MEDS ORDERED: LIDOCAINE 1% Multi-Dose 20 ML VIAL. IJ ONE (13:30)
--- NOTE | 2022-02-27 14:06 | RAD ---
XR KNEE 3 VIEWS_RT DATE: 02/27/2022 1:30 PM INDICATION: fall today, cut to hand, knee pain COMPARISON: 10/02/2021 FINDINGS: Bones: There is no evidence of acute fracture or dislocation. Joints: Moderate medial and lateral compartment degenerative changes, severe patellofemoral compartm ent degenerative changes. There is no joint effusion. Chondrocalcinosis of the menisci, nonspecific b ut can be seen with CPPD arthropathy. IMPRESSION: No acute fracture Electronically signed by: Frederic Arenas MD (02/27/2022 2:03 PM) [id number]
--- NOTE | 2022-02-27 14:08 | RAD ---
XR HAND_RIGHT 3 VIEWS DATE: 02/27/2022 1:30 PM INDICATION: fall today, cut to hand, knee pain COMPARISON: None. FINDINGS: Bones: There is no evidence of acute fracture or dislocation. Joints: Advanced degenerative changes of the first CMC joint, triscaphe joint, and radiocarpal joint. Moderate degenerative changes of the DIP and cavity joints. Moderate degenerative changes of the sec ond and third MCP joints with mild degenerative subluxation. Miscellaneous: No radiopaque foreign bodies. IMPRESSION: No acute fracture or radiopaque foreign body. Electronically signed by: Frederic Arenas MD (02/27/2022 2:06 PM) [id number]
[2022-02-27 14:09] VITALS: BP 190/89
--- NOTE | 2022-02-27 14:19 | RAD ---
Exam Date: 02/27/2022 1:[address] HEAD AND C-SPINE WO Indication: Reason: FALL, WEAKNESS, CONFUSED / Spl. Instructions: / History: . One or more of the following dose reduction techniques were utilized: *Automated exposure control (AEC) *Adjustment of mA and/or kV according to patient size *Use of iterative reconstruction technique *CT scan done according to ALARA, or ALARA/IMAGE GENTLY EXAMINATION: CT OF THE HEAD WITHOUT CONTRAST INDICATION: Trauma, head injury, headache; TECHNIQUE: Noncontrast helical axial CT images of the head were obtained. FINDINGS: The ventricles and sulci are prominent consistent with cerebral volume loss. Patchy ill-defined low attenuation areas in the subcortical and periventricular white matter bilaterally are consistent with microvascular disease. There is no evidence of acute intracranial hemorrhage, extra-axial collecti on, mass effect, midline shift, or acute territorial infarct. No lesion of the skull base or the calv arium is seen. The visualized paranasal sinuses, mastoid air cells, and orbits are normal in appearan ce. IMPRESSION: No evidence for acute intracranial abnormality. Volume loss and microvascular disease. EXAMINATION: CT OF THE CERVICAL SPINE WITHOUT CONTRAST Clinical Indication: Cervical spine pain after trauma Technique: Thin cut helical axial CT images through the cervical spine were obtained without contrast on a multi-detector CT scanner. Source data was then reconstructed into sagittal and coronal planes. Findings: There is grade 1 retrolisthesis of C3 on C4 and C4 and C5, likely degenerative. Vertebral body heights are maintained without acute fracture. Moderate to severe multilevel degenerat rebecca changes are noted. No significant prevertebral soft tissue swelling is demonstrated. No severe os seous central canal stenosis is seen. There is saccular aneurysmal dilatation along the mid aortic arch up to 3.2 cm in diameter. Aortic c alcifications are noted. Mild bilateral emphysematous changes are noted with right apical posterior scarring and/or atelectasi s. Impression: No evidence of acute cervical spine fracture. Degenerative changes noted. 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 Electronically signed by: Abner Jiang MD (02/27/2022 2:16 PM) [id number]
== END 2022-02-27 16:40 | disposition home or self-care (01) ==
LOC: ER 13:03
DX: S61.011A Laceration without foreign body of right thumb without damage to nail, initial encounter (principal); M54.2 Cervicalgia; R22.42 Localized swelling, mass and lump, left lower limb; M25.561 Pain in right knee; M79.641 Pain in right hand; W01.198A Fall on same level from slipping, tripping and stumbling with subsequent striking against other object, initial encounter; Y93.89 Activity, other specified; Y92.090 Kitchen in other non-institutional residence as the place of occurrence of the external cause; Y99.8 Other external cause status
CPT/HCPCS: 12001; 70450; 72125; 73130; 73562; 99284

== ENCOUNTER → 2022-04-24 | Emergency (ER) | payer MEDICARE, OTHER ==
[~2022-04-24] VITALS: Ht 149.9 cm; Wt 51.6 kg
[2022-04-24 19:22] VITALS: BP 154/90
--- NOTE | 2022-04-24 20:21 | RAD ---
Exam: CT head and cervical spine INDICATION: Fall TECHNIQUE: Sequential axial images through the head and cervical spine were obtained without the admi nistration of IV contrast. Exposure: One or more of the following in the visualized dose reduction techniques were utilized for this examination: 1. Automated exposure control 2. Adjustment of the MA and/or KV according to patient size 3. Use of iterative of reconstructive technique Comparisons: None FINDINGS: Head: No focal parenchymal lesion or hemorrhage is identified. There is no midline shift or sulcal effaceme nt. Moderate patchy hypodensity in the periventricular white matter. No acute vascular territory infarcti on is identified. Paula-white distinction is preserved. The ventricular system is within normal limits without compression hydrocephalus. The basal cisterns are well maintained. Extra cranial soft tissue scalp contusion overlying the left occipital region. The visualized portion s of the paranasal sinuses and mastoid air cells are well-pneumatized. No acute fractures. Spine: Straightening of cervical spine which may be positional. Vertebral body heights are well-maintained. Fracture to the cervical spine is not identified. Multilevel spondylotic change in cervical spine with degenerative disc disease greatest at C4-C5, C5- C6 and C6-C7. Mild bilateral facet arthropathy is noted throughout cervical spine. Visualized paraspinal soft tissues are unremarkable. IMPRESSION: 1. Mild extra cranial soft tissue scalp contusion overlying the left parietal region without underly ing osseous or intracranial abnormality 2. Negative CT C-spine for acute traumatic injury Electronically signed by: Mukesh Romero MD (04/24/2022 8:19 PM) [facility]
--- NOTE | 2022-04-24 20:25 | PHYS DOC ---
Past History Additional Past Medical Histor: parkinsons, (DAFNE CHANG APRN) Past Surgical History: Cholecystectomy, Hysterectomy, Knee Replacement, Other Additional Past Surgical Histo: back, shoulders (DAFNE CHANG APRN) Alcohol Use: Occasionally (DAFNE CHANG APRN) General Adult EDM: Chief Complaint: HEAD INJURY/TRAUMA HPI: HPI: Patient is a 86-year-old female who presents after a fall. Patient states that she was walking backwards with her walker, when she states her legs went out from under her and she fell back onto the concrete. denies loss of consciousness. Patient has a hematoma to the back of her head. Denies neck or back pain. Denies taking anything for pain prior to arrival. History of Parkinson's. (DAFNE CHANG APRN) Review of Systems: Review of Systems: ROS At least 10 ROS systems have been reviewed and are negative except as documented in the HPI. General: Negative except as outlined in HPI above. Skin: Negative except as outlined in HPI above. HEENT: Negative except as outlined in HPI above. Neck: Negative except as outlined in HPI above. Respiratory: Negative except as outlined in HPI above.. Cardiovascular: Negative except as outlined in HPI above. Abdomen: Negative except as outlined in HPI above. : Negative except as outlined in HPI above. Back/MSK: Negative except as outlined in HPI above. Neuro: Negative except as outlined in HPI above. Psych: Negative except as outlined in HPI above. (DAFNE CHANG APRN) Allergies: Allergies: Allergies Coded Allergies Type Severity Reaction Last Updated Verified Sulfa (Sulfonamide Antibiotics) Allergy Unknown 08/05/21 Yes adhesive Allergy Unknown 08/05/21 Yes mirtazapine Allergy Unknown 08/05/21 Yes (DAFNE CHANG APRN) Physical Exam: PE: Constitutional: Well developed, well nourished, no acute distress, non-toxic appearance. [] HENT: Normocephalic, atraumatic, bilateral external ears normal, oropharynx moist, no oral exudates, nose normal. [] Eyes: PERRLA, EOMI, conjunctiva normal, no discharge. [] Neck: Normal range of motion, no tenderness, supple, no stridor. [] Cardiovascular:Heart rate regular rhythm, no murmur [] Lungs & Thorax: Bilateral breath sounds clear to auscultation [] Abdomen: Bowel sounds normal, soft, no tenderness, no masses, no pulsatile masses. [] Skin: Hematoma, posterior head. Abrasion. Bleeding controlled. Back: No tenderness, no CVA tenderness. [] Extremities: No tenderness, no cyanosis, no clubbing, ROM intact, no edema. [] Neurologic: Alert and oriented X 3, normal motor function, normal sensory function, no focal deficits noted. [] Psychologic: Affect normal, judgement normal, mood normal. [] (DAFNE CHANG APRN) Current Patient Data: Vital Signs: Vital Signs Date Time Temp Pulse Resp B/P (MAP) Pulse Ox O2 Delivery O2 Flow Rate FiO2 04/24/22 19:22 98.2 70 18 154/90 (111) 94 Room Air (DAFNE CHANG APRN) EKG: EKG: [] (DAFNE CHANG APRN) Radiology/Procedures: Radiology/Procedures: []Exam: CT head and cervical spine INDICATION: Fall TECHNIQUE: Sequential axial images through the head and cervical spine were obtained without the administration of IV contrast. Exposure: One or more of the following in the visualized dose reduction techniqu es were utilized for this examination: 1. Automated exposure control 2. Adjustment of the MA and/or KV according to patient size 3. Use of iterative of reconstructive technique Comparisons: None FINDINGS: Head: No focal parenchymal lesion or hemorrhage is identified. There is no midline shift or sulcal effacement. Moderate patchy hypodensity in the periventricular white matter. No acute vascular territory infarction is identified. Paula-white distinction is preserved. The ventricular system is within normal limits without compression hydrocephalus. The basal cisterns are well maintained. Extra cranial soft tissue scalp contusion overlying the left occipital region. The visualized portions of the paranasal sinuses and mastoid air cells are well-pneumatized. No acute fractures. Spine: Straightening of cervical spine which may be positional. Vertebral body heights are well-maintained. Fracture to the cervical spine is not identified. Multilevel spondylotic change in cervical spine with degenerative disc disease greatest at C4-C5, C5-C6 and C6-C7. Mild bilateral facet arthropathy is noted throughout cervical spine. Visualized paraspinal soft tissues are unremarkable. IMPRESSION: 1. Mild extra cranial soft tissue scalp contusion overlying the left parietal region without underlying osseous or intracranial abnormality 2. Negative CT C-spine for acute traumatic injury Electronically signed by: Mukesh Romero MD (04/24/2022 8:19 PM) [facility] (DAFNE CHANG APRN) Heart Score: C/O Chest Pain: No Risk Factors: Risk Factors: DM, Current or recent (<one month) smoker, HTN, HLP, family history of CAD, obesity. Risk Scores: Score 0 - 3: 2.5% MACE over next 6 weeks - Discharge Home Score 4 - 6: 20.3% MACE over next 6 weeks - Admit for Clinical Observation Score 7 - 10: 72.7% MACE over next 6 weeks - Early Invasive Strategies (DAFNE CHANG APRN) Course & Med Decision Making: Course & Med Decision Making Pertinent Labs and Imaging studies reviewed. (See chart for details) [] 86-year-old female presents after a fall. Patient was walking backwards with her walker when her legs and out from under her and she fell back onto the conc rete. No loss of consciousness. Denies neck pain or back pain. Denies blood thinners. Work-up in ER consisted of CT head and cervical spine. She has a hematoma to her posterior head. Wound was cleaned. No indication for fly. CT head and cervical spine was unremarkable. No intracranial bleeding or fracture seen. Discussed results with patient. Discussed return precautions in length. Patient verbalizes understanding of discharge instructions. Advised patient to follow-up with her PCP in the next few days for further management. (DAFNE CHANG APRN) Course & Med Decision Making Did not see or evaluate patient. Did not discuss patient with CLINICAL PROVIDER TRAINER. Generally agree with CLINICAL PROVIDER TRAINER's work-up and disposition per note (BROOKE SILVA MD) Dragon Disclaimer: Dragon Disclaimer: This electronic medical record was generated, in whole or in part, using a voice recognition dictation system. (DAFNE CHANG APRN) Departure Departure: Impression: Primary Impression: Head injury due to trauma Qualified Codes: S09.90XA - Unspecified injury of head, initial encounter Disposition: HOME / SELF CARE / HOMELESS Condition: STABLE Referrals: PORFIRIO ROSE (PCP) Patient Instructions: Head Injury, Adult, [id number] Additional Instructions: You were seen in the emergency room after falling and hitting her head. We did a CT of your head and cervical spine which was unremarkable. We did not see any bleeding or fractures. Please return to the emergency room if you have worsening symptoms or concerns such as altered mental status, vomiting. Otherwise follow-up with your PCP for further management. EMERGENCY DEPARTMENT GENERAL DISCHARGE INSTRUCTIONS Thank you for coming to [facility] (ED) today and trusting us with you care. We trust that you had a positivie experience in our Emergency Department. If you wish to speak to the department management, you may call the director at [phone]. YOUR FOLLOW UP INSTRUCTIONS ARE FOLLOWS: 1. Do you have a private Doctor? If you do not have a private doctor, please ask for a resource list of physicians or clinics that may be able to assist you with follow up care. 2. The Emergency Physician has interpreted your x-rays. The X-Ray specialist will also review them. If there is a change in the findings, you will be notified in 48 hours when at all possible. 3. A lab test or culture has been done, your results will be reviewed and you will be notified if you need a change in treatment. ADDITIONAL INSTRUCTIONS AND INFORMATION: 1. Your care today has been supervised by a physician who is specially trained in emergency care. Many problems require more than one evaluation for a complete diagnosis and treatment. We recommend that you schedule your follow up appointment as recommended to ensure complete treatment of you illness or injury. If you are unable to obtain follow up care and continue to have a problem, or if your condition worsens, we recommend that you return to the ED. 2. We are not able to safely determine your condition over the phone nor are we able to give sound medical advice over the phone. For these safety reasons, if you call for medical advice we will ask you to come to the ED for further evaluation. 3. If you have any questions regarding these discharge instructions please call the ED at [phone]. SAFETY INFORMATION: In the interest of safety, wellness, and injury prevention; we encourage you to wear your sealbelt, if you smoke; quite smoking, and we encourage family to use a pr otective helmet for bicycling and other sporting events that present an increased risk for head injury. IF YOUR SYMPTOMS WORSEN OR NEW SYMPTOMS DEVELOP, OR YOU HAVE CONCERNS ABOUT YOUR CONDITION; OR IF YOUR CONDITION WORSENS WHILE YOU ARE WAITING FOR YOUR FOLLOW UP APPOINTMENT; EITHER CONTACT YOUR PRIMARY CARE DOCTOR, THE PHYSICIAN WHOSE NAME AND NUMBER YOU WERE GIVEN, OR RETURN TO THE ED IMMEDIATELY. DAFNE CHANG APRN April 24, 2022 20:25 BROOKE SILVA MD April 25, 2022 00:40
== END | disposition home or self-care (01) ==
LOC: ER 19:19
DX: S00.03XA Contusion of scalp, initial encounter (principal); Z88.2 Allergy status to sulfonamides; Z88.8 Allergy status to other drugs, medicaments and biological substances; W18.39XA Other fall on same level, initial encounter; Y93.01 Activity, walking, marching and hiking; Y92.89 Other specified places as the place of occurrence of the external cause; Y99.8 Other external cause status
CPT/HCPCS: 70450; 72125; 99284